=== PATIENT | female | born 1970 | race American Indian/Alaskan Native ===

== ENCOUNTER 2017-08-15 08:33 | Outpatient (CLI) | payer MEDICARE ==
--- NOTE | 2017-08-15 10:46 | Ultrasound Report ---
LEFT BREAST ULTRASOUND: 08/15/17 08:33:00 CLINICAL: Recall to evaluate new circumscribed densities. COMPARISON: 01/11/16 FINDINGS: Ultrasound of the left breast(including all four quadrants and the retroareolar area) was performed and demonstrated numerous benign cysts. No solid mass. The largest cyst is at 6 o'clock 3 cm from the nipple and measures 1.0 x 0.0 0.5 cm. A cyst at 1 o'clock 5 cm from nipple measures 0.9 x 0.6 x 0.9 cm. A cyst at 5 o'clock 4 cm from the nipple measures 0.6 x 0.5 x 0.5 cm. Cysts at 12 o'clock near the areola measures 0.8 x 0.4 x 0.7 cm and 0.4 x 0.3 x 0.5 cm. IMPRESSION: Benign left breast cysts. BI-RADS 2 - - Benign RECOMMENDATION: Routine mammographic screening.
== END 2017-08-15 08:34 | disposition home or self-care (01) ==
LOC: SPVWC 08:33
PROVIDERS: ATTEND Obstetrics & Gynecology
DX: N60.02 Solitary cyst of left breast (principal)